=== PATIENT | male | born 1990 | race African-American/Black ===

== ENCOUNTER 2020-08-07 19:12 | Emergency (ER) | payer BC ==
[~2020-08-07] VITALS: Ht 170.2 cm; Wt 49.9 kg
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
[2020-08-07 19:22] VITALS: BP 130/91
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
--- NOTE | 2020-08-07 20:14 | NUR ---
ED Nurse Note: patient off floor for ct scan.
[2020-08-07] MEDS ORDERED: Cyclobenzaprine 10mg Tab ORAL ONE (20:15)
[2020-08-07] MEDS ORDERED: Ketorolac 60mg Inj IM ONE (20:15)
--- NOTE | 2020-08-07 20:43 | NUR ---
ED Nurse Note: patient back on floor from ct scan
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
[2020-08-07] MEDS ORDERED: ACETAMINOPHEN-1 EAC1 ORAL (21:54)
[2020-08-07] MEDS ORDERED: IBUPROFEN800 MG ORAL (21:54)
[2020-08-07] MEDS ORDERED: CYCLOBENZAPRINE10 MG ORAL (21:54)
[2020-08-07 21:56] VITALS: BP 130/91
--- NOTE | 2020-08-07 21:56 | NUR ---
ED Nurse Note: Patient cleared by health care Provider for discharge. DC instructions/prescription was given and explained to pt and verbalized understanding of teachings. All medical deviecs such as ID band removed. Pt is AAO x4, ambulatory and left with all personal belongings.
--- NOTE | 2020-08-08 11:18 | Diagnostic Imaging Report ---
Indication: Chest pain status post injury Technique: PA view of the chest Comparison: None Findings: There is no focal airspace consolidation. No pleural effusion, pneumothorax or radiographic evidence of pulmonary edema. Heart size and mediastinal contours are within normal limits. No acute osseous abnormality appreciated. Impression: No radiographic evidence of acute cardiopulmonary disease.
--- NOTE | 2020-08-08 11:20 | Diagnostic Imaging Report ---
Indication: Back pain status post injury Technique: 3 views of the lumbar spine Comparison: None Findings: Bony mineralization within normal limits. There are 5 nonrib-bearing lumbar type vertebral bodies, assuming 12 paired ribs. There is mild lumbar scoliosis. No acute lumbar spine fracture is appreciated. Vertebral body heights are maintained; there is no evidence of suggest compression fracture. No evidence of spondylolisthesis. Bowel gas pattern is nonobstructive. There is a phlebolith in the right pelvis. Impression: Mild scoliosis. No radiographically appreciable acute lumbar spine fracture.
== END 2020-08-07 21:58 | disposition home or self-care (01) ==
LOC: EMR 19:46
DX: S13.4XXA Sprain of ligaments of cervical spine, initial encounter (principal); S00.83XA Contusion of other part of head, initial encounter; F12.90 Cannabis use, unspecified, uncomplicated; V43.52XA Car driver injured in collision with other type car in traffic accident, initial encounter; Y92.411 Interstate highway as the place of occurrence of the external cause
CPT/HCPCS: 70450; 70486; 71045; 72020; 96372; 99284